=== PATIENT | female | born 1990 | race Caucasian/White ===

== ENCOUNTER 2017-02-25 05:50 | Inpatient (IN) | payer OTHER ==
[~2017-02-25] VITALS: Ht 160 cm; Wt 65.3 kg
[~2017-02-25 05:50] MED LIST: EPHEDrine SULFATE 50 MG/ML VIAL IM ONE; KETOROLAC TROMETHAMINE 60 MG/2 ML VIAL IM ONE; OXYTOCIN 10 UNITS/ML VIAL IM ONE; PHENYLEPHRINE HCL 10 MG/ML VIAL IVP ONE
[2017-02-25 06:27] VITALS: BP 111/74
[2017-02-25] MEDS ORDERED: PREN1TAB80 PO (06:30)
[2017-02-25] MEDS ORDERED: RINGERS SOLUTION,LACTATED 1,000 ML IV ONE (06:43)
[2017-02-25] MEDS ORDERED: CITRIC ACID/SODIUM CITRATE 30 ML SOLUTION UDCUP PO ONE (06:45)
[2017-02-25] MEDS ORDERED: METOCLOPRAMIDE HCL 5 MG/ML 2 ML VIAL IVP ONE (06:45)
[2017-02-25 07:07] LABS: BASOPHILS # (AUTO) 0.03 K/uL (0.00-0.20); BASOPHILS % (AUTO) 0.3 % (0.0-2.0); EOSINOPHILS # (AUTO) 0.04 K/uL (0.00-0.70); HEMATOCRIT 38.4 % (36-46); HEMOGLOBIN 13.3 g/dL (12.0-16.0); LYMPHOCYTES # (AUTO) 1.7 K/uL (1.0-4.8); LYMPHOCYTES % (AUTO) 18.1 % (22.0-44.0); MEAN CORPUSCULAR HEMOGLOBIN 33.7 pg (26.0-34.0); MEAN CORPUSCULAR HGB CONC 34.6 G/dL (31.0-37.0); MEAN CORPUSCULAR VOLUME 97 fL (80-100); MONOCYTES # (AUTO) 0.6 K/uL (0.1-1.0); MONOCYTES % (AUTO) 6.8 % (2.0-9.0); NEUTROPHILS % (AUTO) 74.4 % (40.0-70.0); RED BLOOD CELL COUNT(AUTO) 3.94 MIL/uL (4.00-5.20); RED CELL DISTRIBUTION WIDTH 13.1 % (11.5-14.5); WHITE BLOOD COUNT (AUTO) 9.4 K/uL (4.5-11.0)
[2017-02-25] MEDS ORDERED: RINGERS SOLUTION,LACTATED 1,000 ML IV SCH (07:25)
[2017-02-25] MEDS ORDERED: CeFAZolin 2 GM/DEXTROSE 50 ML IV ONE (11:34)
[2017-02-25] MEDS ORDERED: MORPHINE SULFATE/PF 1 MG/ML 10 ML AMP ONE (11:34)
[2017-02-25] MEDS ORDERED: FentaNYL CITRATE-PF 100 MCG/2 ML VIAL ONE (11:34)
[2017-02-25] MEDS ORDERED: NALOXONE HCL 0.4 MG/ML VIAL IVP PRN (14:00)
[2017-02-25] MEDS ORDERED: MEPERIDINE-PF 25 MG/ML SYRINGE IVP PRN (14:00)
[2017-02-25] MEDS ORDERED: DEXAMETHASONE SOD PHOS 4 MG/ML VIAL IVP PRN (14:00)
[2017-02-25] MEDS ORDERED: NALBUPHINE HCL 10 MG/ML VIAL IVP PRN ×2 (14:00)
[2017-02-25] MEDS ORDERED: DiphenhydrAMINE HCL 50 MG/ML VIAL IVP PRN ×2 (14:00)
[2017-02-25] MEDS ORDERED: FentaNYL CITRATE-PF 100 MCG/2 ML VIAL IVP PRN ×4 (14:00)
[2017-02-25] MEDS ORDERED: ONDANSETRON HCL 4 MG/2 ML VIAL IVP PRN ×2 (14:00)
[2017-02-25] MEDS ORDERED: LANOLIN 7 GM OINTMENT TP PRN (15:45)
[2017-02-25] MEDS ORDERED: DEXTROSE 5%-0.45% SODIUM CHL 1,000 ML IV ONE (16:17)
[2017-02-25] MEDS: DEXTROSE 5%-0.45% SODIUM CHL 1,000 ML IV SCH ×3 (16:18→23:56)
[2017-02-25] MEDS ORDERED: OXYGEN THERAPY IH SCH ×2 (20:00)
[2017-02-25] MEDS: NALBUPHINE HCL 10 MG/ML VIAL IVP PRN (20:11)
[2017-02-25] MEDS: MAGNESIUM HYDROXIDE SUSPENSION 30 ML UDCUP PO SCH (21:00)
[2017-02-26] MEDS: DEXTROSE 5%-0.45% SODIUM CHL 1,000 ML IV SCH (04:18)
[2017-02-26] MEDS: NALBUPHINE HCL 10 MG/ML VIAL IVP PRN (04:46)
[2017-02-26] MEDS: MAGNESIUM HYDROXIDE SUSPENSION 30 ML UDCUP PO SCH ×3 (07:27→20:59)
[2017-02-26] MEDS: IBUPROFEN 800 MG TABLET PO SCH ×3 (08:16→22:36)
[2017-02-26] MEDS: ACETAMINOPHEN/CODEINE 300-30 MG TABLET PO PRN ×2 (13:40→23:14)
[2017-02-26] MEDS: OXYGEN THERAPY IH SCH (14:09)
[2017-02-27] MEDS: IBUPROFEN 800 MG TABLET PO SCH ×4 (04:19→21:51)
[2017-02-27] MEDS: OXYGEN THERAPY IH SCH ×2 (08:00→08:27)
[2017-02-27] MEDS: ACETAMINOPHEN/CODEINE 300-30 MG TABLET PO PRN ×2 (13:00→17:55)
[2017-02-28] MEDS: IBUPROFEN 800 MG TABLET PO SCH ×3 (01:55→10:07)
[2017-02-28] MEDS: ACETAMINOPHEN/CODEINE 300-30 MG TABLET PO PRN ×2 (02:14→07:44)
[2017-02-28] MEDS: OXYGEN THERAPY IH SCH (08:00)
[2017-02-28] MEDS: MAGNESIUM HYDROXIDE SUSPENSION 30 ML UDCUP PO SCH (09:00)
[2017-02-28] MEDS ORDERED: IBUP-2070 PO (09:41)
[2017-02-28] MEDS ORDERED: DSS100 PO (09:44)
[2017-02-28] MEDS ORDERED: ACET1TAB12 PO (09:46)
[2017-02-28] MEDS ORDERED: AMMONIA 1 EA AMP IH ONE (14:07)
== END 2017-02-28 14:00 | disposition home or self-care (01) | DRG 766 ==
LOC: OBSVTOIN 05:50 → 4S 05:50
PROVIDERS: ADMIT Obstetrics & Gynecology; ATTEND Obstetrics & Gynecology
PROC: 10D00Z1 Extraction of Products of Conception, Low, Open Approach (ICD-10-PCS; principal; 2017-02-25)
DX: O60.14X0 Preterm labor third trimester with preterm delivery third trimester, not applicable or unspecified (principal); O24.429 Gestational diabetes mellitus in childbirth, unspecified control; K25.9 Gastric ulcer, unspecified as acute or chronic, without hemorrhage or perforation; O99.62 Diseases of the digestive system complicating childbirth; Z3A.36 36 weeks gestation of pregnancy; Z37.0 Single live birth
CPT/HCPCS: 86850; 86900; 86901; 87081; J0690; J1885; J2300; J2370; J2590; J2765; J3010; J3490; J7120

== ENCOUNTER 2018-09-18 12:17 | Inpatient (IN) | payer OTHER ==
[~2018-09-18 12:17] MED LIST changes: +ACET1TAB12 PO; +DSS100 PO; +FentaNYL CITRATE-PF 100 MCG/2 ML VIAL IVP ONE; +IBUP-2070 PO; -KETOROLAC TROMETHAMINE 60 MG/2 ML VIAL IM ONE; +LIDOCAINE/PF 2% 5 ML VIAL INJ ONE; +MIDAZOLAM HCL 2 MG/2 ML VIAL IVP ONE; +MORPHINE SULFATE/PF 0.5 MG/ML 10 ML AMP IVP ONE; -PHENYLEPHRINE HCL 10 MG/ML VIAL IVP ONE; +PREN1TAB80 PO
[2018-09-18] MEDS ORDERED: RINGERS SOLUTION,LACTATED 1,000 ML IV ONE (12:35)
[2018-09-18] MEDS ORDERED: METOCLOPRAMIDE HCL 5 MG/ML 2 ML VIAL IVP ONE (12:45)
[2018-09-18] MEDS ORDERED: CITRIC ACID/SODIUM CITRATE 30 ML SOLUTION UDCUP PO ONE (12:45)
[2018-09-18] MEDS ORDERED: BETAMETHASONE SOLUSPAN 6 MG/ML 5 ML VIAL IM ONE (12:45)
[2018-09-18 13:09] LABS: BASOPHILS % (AUTO) 0.3 % (0.0-2.0); EOSINOPHILS % (AUTO) 0.4 % (1.0-6.0); HEMOGLOBIN 12.7 g/dL (12.0-16.0); LYMPHOCYTES # (AUTO) 2.1 K/uL (1.0-4.8); LYMPHOCYTES % (AUTO) 13.3 % (22.0-44.0); MEAN CORPUSCULAR HEMOGLOBIN 32.9 pg (26.0-34.0); MEAN CORPUSCULAR HGB CONC 34.4 G/dL (31.0-37.0); MEAN CORPUSCULAR VOLUME 96 fL (80-100); MONOCYTES # (AUTO) 0.5 K/uL (0.1-1.0); MONOCYTES % (AUTO) 3.5 % (2.0-9.0); NEUTROPHILS # (AUTO) 12.8 K/uL (1.8-7.7); NEUTROPHILS % (AUTO) 82.5 % (40.0-70.0); PLATELET COUNT (AUTO)-OB 347 K/uL (150-450); RED BLOOD CELL COUNT(AUTO) 3.87 MIL/uL (4.00-5.20); RED CELL DISTRIBUTION WIDTH 13.3 % (11.5-14.5)
[2018-09-18 13:27] LABS: INR 0.9 (0.9-1.1); PROTHROMBIN TIME 9.4 SEC (9.4-11.6)
[2018-09-18 13:29] LABS: FIBRIN SPLIT PRODUCTS GT >10 but LT <40 mcg/mL (<10)
[2018-09-18] MEDS ORDERED: GUM MASTIC/STORAX/MSAL/ALCOHOL LIQUID 0.67 ML VIAL TP ONE (13:38)
[2018-09-18] MEDS ORDERED: ONDANSETRON HCL 4 MG/2 ML VIAL IVP PRN ×2 (13:45)
[2018-09-18] MEDS ORDERED: DiphenhydrAMINE HCL 50 MG/ML VIAL IVP PRN ×2 (13:45)
[2018-09-18] MEDS ORDERED: DEXAMETHASONE SOD PHOS 4 MG/ML VIAL IVP PRN (13:45)
[2018-09-18] MEDS ORDERED: MEPERIDINE-PF 25 MG/ML VIAL IVP PRN (13:45)
[2018-09-18] MEDS ORDERED: MORPHINE SULFATE 10 MG/ML SYRINGE IVP PRN (13:45)
[2018-09-18] MEDS ORDERED: NALBUPHINE HCL 10 MG/ML VIAL IVP PRN ×3 (13:45)
[2018-09-18] MEDS ORDERED: NALOXONE HCL 0.4 MG/ML VIAL IVP PRN (13:45)
[2018-09-18] MEDS ORDERED: ACETAMINOPHEN 1000 MG/ISO-OSM 100 ML IV ONE ×2 (13:45→15:07)
[2018-09-18] MEDS ORDERED: FentaNYL CITRATE-PF 100 MCG/2 ML VIAL IVP PRN ×4 (13:45)
[2018-09-18 13:51] LABS: FIBRINOGEN 465 mg/dL (200-400)
[2018-09-18] MEDS ORDERED: LANOLIN 7 GM OINTMENT TP PRN (15:00)
[2018-09-18] MEDS ORDERED: OXYTOCIN 30 UNITS/LACT RINGERS 500 ML IV ONE (15:00)
[2018-09-18] MEDS: RINGERS SOLUTION,LACTATED 1,000 ML IV SCH (19:55)
[2018-09-18] MEDS ORDERED: OXYGEN THERAPY IH SCH ×3 (20:00)
[2018-09-18] MEDS: MAGNESIUM HYDROXIDE SUSPENSION 30 ML UDCUP PO SCH (21:00)
[2018-09-18] MEDS: ACETAMINOPHEN 1000 MG/ISO-OSM 100 ML IV SCH (23:02)
[2018-09-19] MEDS: RINGERS SOLUTION,LACTATED 1,000 ML IV SCH (03:20)
[2018-09-19 05:58] LABS: BASOPHILS % (AUTO) 0.1 % (0.0-2.0); EOSINOPHILS % (AUTO) 0 % (1.0-6.0); HEMATOCRIT 30.3 % (36-46); HEMOGLOBIN 10.8 g/dL (12.0-16.0); LYMPHOCYTES # (AUTO) 1.7 K/uL (1.0-4.8); LYMPHOCYTES % (AUTO) 7.8 % (22.0-44.0); MEAN CORPUSCULAR HEMOGLOBIN 32.9 pg (26.0-34.0); MEAN CORPUSCULAR HGB CONC 35.5 G/dL (31.0-37.0); MEAN CORPUSCULAR VOLUME 93 fL (80-100); MONOCYTES # (AUTO) 0.6 K/uL (0.1-1.0); MONOCYTES % (AUTO) 2.9 % (2.0-9.0); NEUTROPHILS # (AUTO) 19.3 K/uL (1.8-7.7); PLATELET COUNT (AUTO)-OB 359 K/uL (150-450); RED BLOOD CELL COUNT(AUTO) 3.27 MIL/uL (4.00-5.20); RED CELL DISTRIBUTION WIDTH 12.8 % (11.5-14.5)
[2018-09-19 06:20] LABS: NEUTROPHILS % (AUTO) 89.2 % (40.0-70.0)
[2018-09-19] MEDS: ACETAMINOPHEN 1000 MG/ISO-OSM 100 ML IV SCH (06:47)
[2018-09-19] MEDS: IBUPROFEN 800 MG TABLET PO PRN (15:51)
[2018-09-19] MEDS: OxyCODONE HCL/ACETAMINOPHEN 5-325 MG TABLET PO PRN (15:51)
[2018-09-19] MEDS: MAGNESIUM HYDROXIDE SUSPENSION 30 ML UDCUP PO SCH (21:42)
[2018-09-20] MEDS: IBUPROFEN 800 MG TABLET PO PRN ×2 (07:08→23:06)
[2018-09-20] MEDS: OxyCODONE HCL/ACETAMINOPHEN 5-325 MG TABLET PO PRN ×4 (07:09→16:37)
[2018-09-20] MEDS: MAGNESIUM HYDROXIDE SUSPENSION 30 ML UDCUP PO SCH ×2 (09:13→20:18)
[2018-09-21] MEDS: IBUPROFEN 800 MG TABLET PO PRN (08:07)
[2018-09-21] MEDS: MAGNESIUM HYDROXIDE SUSPENSION 30 ML UDCUP PO SCH (08:34)
== END 2018-09-21 11:50 | disposition home or self-care (01) | DRG 786 ==
LOC: OBSVTOIN 12:17 → 4S 12:17
PROVIDERS: ADMIT Obstetrics & Gynecology; ATTEND Obstetrics & Gynecology
PROC: 10D00Z1 Extraction of Products of Conception, Low, Open Approach (ICD-10-PCS; principal; 2018-09-18)
DX: O34.211 Maternal care for low transverse scar from previous cesarean delivery (principal); O45.93 Premature separation of placenta, unspecified, third trimester; Z3A.36 36 weeks gestation of pregnancy; Z37.0 Single live birth
CPT/HCPCS: 85362; 85384; 86592; 86762; 86850; 86900; 86901; 86920; 87340; J0131; J2250; J2274; J2405; J2590; J3010; J3490; J7120